=== PATIENT | male | born 1995 | race Hispanic/Latino ===

== ENCOUNTER 2021-07-09 06:52 | Emergency (ER) | payer OTHER ==
[2021-07-09] MEDS ORDERED: methylPREDNISolone Sod Succ/PF 125 MG/2 ML VIAL ONE (07:04)
[2021-07-09] MEDS ORDERED: cefTRIAXone\\ROCEPHIN 1 GM VIAL ONE (07:22)
[2021-07-09] MEDS ORDERED: Sodium Chloride 0.9% 100 ML ONE (07:24)
[2021-07-09] MEDS ORDERED: Sodium Chloride 0.9% 1,000 ML ONE (07:25)
[2021-07-09 07:27] LABS: ALT (SGPT) 21 U/L (8-55); AST (SGOT) 18 U/L (5-34); Albumin 4.4 g/dL (3.5-5.0); Alkaline Phosphatase 66 U/L (40-110); Anion Gap 15 mmol/L (10-20); BUN (Urea Nitrogen) 6 mg/dL (8.9-20.6); Bilirubin, Total 1.1 mg/dL (0.2-1.2); CK (CPK) 164 U/L (30-200); Calc. Creatinine Clearance 0 mL/min (70-130); Calcium 8.6 mg/dL (7.8-10.44); Carbon Dioxide 21 mmol/L (22-29); Chloride 110 mmol/L (98-107); Globulin 2.7 g/dL (2.4-3.5); Glucose 96 mg/dL (70-105); Potassium 4.2 mmol/L (3.5-5.1); Protein, Total 7.1 g/dL (6.0-8.3); Sodium 142 mmol/L (136-145)
[2021-07-09] MEDS ORDERED: Albuterol Sulfate 2.5 mg/0.5 ml Neb ONE ×3 (07:32→07:55)
[2021-07-09 07:37] LABS: Bilirubin Negative (Negative); Blood, Urine Negative (Negative); Clarity Clear (Clear); Glucose, Urine (Dipstick) Negative (Negative); Ketone, Urine Negative (Negative); Leukocyte Negative (Negative); Nitrite Negative (Negative); Protein, Urine (Dipstick) Negative (Neg-Trace); Urobilinogen 0.2 mg/dL (Less than 2)
[2021-07-09] MEDS ORDERED: Azithromycin 500 MG VIAL ONE (07:38)
[2021-07-09] MEDS ORDERED: Sodium Chloride 0.9% 250 ML 250 ML ONE (07:38)
[2021-07-09 07:40] LABS: #Basophils 0.1 thou/uL (0.0-0.2); #Eosinphils 0.8 thou/uL (0.0-0.7); #Lymphocytes 2.1 thou/uL (1.20-3.40); #Monocytes 0.5 thou/uL (0.11-0.59); #Neutrophils 7.9 thou/uL (1.40-6.50); %Basophils 0.6 % (0.0-1.0); %Eosinophils 7.5 % (0.0-10.0); %Lymphocytes 18.4 % (21.0-51.0); %Neutrophils 69.5 % (42.0-75.0); Hemoglobin 14.9 g/dL (14.0-18.0); Mean Corpuscular HGB CONC 29.9 g/dL (32.0-36.0); Mean Corpuscular Hemoglobin 28.1 pg (27.0-31.0); Mean Corpuscular Volume 93.9 fL (78.0-98.0); Platelet Count 179 thou/uL (130-400); RBC Distribution Width 12.7 % (11.5-14.5); Red Blood Cell (RBC) Count 5.31 mill/uL (4.70-6.10); White Blood Cell (WBC) Count 11.3 thou/uL (4.8-10.8)
[2021-07-09 07:46] LABS: RBC Morphology Normal
[2021-07-09 08:01] LABS: SARS-CoV-2 NAA Rapid Test Not Detected (NotDetected)
== END 2021-07-09 16:10 | disposition short-term general hospital (02) ==
LOC: NAV ERS 06:52 → EDBD 06:52 → NAV ERS 16:10
DX: J45.902 Unspecified asthma with status asthmaticus (principal); R00.0 Tachycardia, unspecified; Z20.822 Contact with and (suspected) exposure to COVID-19; Z79.899 Other long term (current) drug therapy
CPT/HCPCS: 71045; 80053; 81003; 82550; 83605; 85025; 87040; 87086; 93005; 94640; 94660; 94760; 96365; 96367; 96375; J0456; J0696; J2930; J3490; J7050; J7611; J7620; U0002

== ENCOUNTER 2021-11-02 04:53 | Emergency (ER) | payer OTHER ==
[2021-11-02] MEDS ORDERED: Lidocaine 1% 20 ML MDV ONE (05:13)
[2021-11-02] MEDS ORDERED: Acetaminophen 325 MG TAB ONE (05:33)
[2021-11-02] MEDS ORDERED: predniSONE 20 MG TAB ONE (06:15)
[2021-11-02] MEDS ORDERED: Amoxicillin/Potassium Clav 875 MG TAB ONE (06:15)
[2021-11-02] MEDS ORDERED: Ondansetron ODT 4 MG TAB ONE (06:15)
[2021-11-02] MEDS ORDERED: Bacitracin 1 PK ONE (06:20)
== END 2021-11-02 06:30 ==
LOC: NAV ERS 04:53
DX: S01.511A Laceration without foreign body of lip, initial encounter (principal); J45.901 Unspecified asthma with (acute) exacerbation; W22.8XXA Striking against or struck by other objects, initial encounter; Z79.899 Other long term (current) drug therapy; Z87.891 Personal history of nicotine dependence
CPT/HCPCS: 12011; 71045; 94640; 94760; J7512; J7620; Q0162